=== PATIENT | female | born 1960 | race Caucasian/White ===

== ENCOUNTER 2017-06-01 17:11 | Inpatient (IN) | payer OTHER ==
[2017-06-01] MEDS ORDERED: morphine CARPU-JECT 2 MG/1 ML DISP.SYRIN IVPUSH ONE ×2 (17:47→20:00)
[2017-06-01] MEDS ORDERED: ONDANSETRON 4 MG/2 ML VIAL IVPUSH ONE (17:47)
[2017-06-01] MEDS ORDERED: ONDANSETRON 4 MG/2 ML VIAL ONE ×2 (17:50→19:46)
[2017-06-01] MEDS ORDERED: morphine CARPU-JECT 8 MG/1 ML DISP.SYRIN ONE (17:50)
--- NOTE | 2017-06-01 18:58 | PDOC ---
History of Present Illness - General History Source: Patient Exam Limitations: No Limitations - History of Present Illness Initial Comments: 06/01/17 18:58 The patient is a 57 year old female with a significant PMH of HTN and Charcot- Sapna-Tooth disorder who presents to the emergency department with right ankle pain s/p fall approximately 3 hours ago. The patient reports that she was watching dishes in the kitchen when she lost balance due to a Charcot-Sapna- Tooth disorder flare-up in her right leg and fell by putting all her weight on her left leg. She reports feeling like she twisted her right ankle when she fell. She describes the right ankle pain as a sharp sensation 10/10 in severity , which is localized from the right mid-stallworth down to the right ankle and is non- radiating. She reports her ankle pain is aggravated by movement. After falling the patient reports calling her who promptly called 911. She denies taking any medications for pain. The patient denies chest pain, shortness of breath, headache and dizziness. Denies fever, chills, nausea, vomit, diarrhea and constipation. Denies dysuria, frequency, urgency and hematuria. Allergies: NKA Past surgical history: None reported. Social history: No reported cigarette, alcohol, or drug use. PCP: None reported. <Herb Hart - Last Filed: 06/01/17 18:58> <Ronen Case - Last Filed: 06/02/17 16:54> - General Chief Complaint: Injury Stated Complaint: INJURY Time Seen by Provider: 06/01/17 17:47 Past History <Herb Hart - Last Filed: 06/01/17 18:58> - Past Medical History COPD: No HTN: Yes Kidney Stones: Yes Other medical history: Charcot sapna foot - Family Disease History Family Disease History: Heart Disease: Mother - Suicide/Smoking/Psychosocial Hx Smoking History: Never smoked Hx Alcohol Use: No Drug/Substance Use Hx: No Substance Use Type: None Hx Substance Use Treatment: No <Ronen Case - Last Filed: 06/02/17 16:54> - Past Medical History Allergies/Adverse Reactions: Allergies Allergy/AdvReac Type Severity Reaction Status Date / Time codeine Allergy Rash Verified 06/02/17 04:12 Home Medications: Ambulatory Orders Atenolol [Tenormin -] 100 mg PO DAILY 06/01/17 Review of Systems - Review of Systems Able to Perform ROS?: Yes Comments:: 06/01/17 18:58 GENERAL/CONSTITUTIONAL: No fever or chills. No weakness. HEAD, EYES, EARS, NOSE AND THROAT: No change in vision. No ear pain or discharge. No sore throat. CARDIOVASCULAR: No chest pain or shortness of breath. RESPIRATORY: No cough, wheezing, or hemoptysis. GASTROINTESTINAL: No nausea, vomiting, diarrhea or constipation. GENITOURINARY: No dysuria, frequency, or change in urination. MUSCULOSKELETAL: (+) Left ankle pain. (+) Left stallworth pain. No neck or back pain. SKIN: No rash NEUROLOGIC: No headache, vertigo, loss of consciousness, or change in strength/ sensation. ENDOCRINE: No increased thirst. No abnormal weight change. HEMATOLOGIC/LYMPHATIC: No anemia, easy bleeding, or history of blood clots. ALLERGIC/IMMUNOLOGIC: No hives or skin allergy. <Herb Hart - Last Filed: 06/01/17 18:58> *Physical Exam - Vital Signs Last Vital Signs Temp Pulse Resp BP Pulse Ox 99.1 F 79 17 134/83 97 06/01/17 17:28 06/01/17 17:28 06/01/17 17:28 06/01/17 17:28 06/01/17 17:28 - Physical Exam Comments: 06/01/17 18:58 GENERAL: Awake, alert, and fully oriented, in no acute distress HEAD: No signs of trauma EYES: PERRLA, EOMI, sclera anicteric, conjunctiva clear ENT: Auricles normal inspection, hearing grossly normal, nares patent, oropharynx clear without exudates. Moist mucosa NECK: Normal ROM, supple, no lymphadenopathy, JVD, or masses LUNGS: Breath sounds equal, clear to auscultation bilaterally. No wheezes, and no crackles HEART: Regular rate and rhythm, normal S1 and S2, no murmurs, rubs or gallops ABDOMEN: Soft, nontender, normoactive bowel sounds. No guarding, no rebound. No masses EXTREMITIES: (+) Left ankle and left stallworth tenderness to palpation. Normal range of motion, no edema. No clubbing or cyanosis. No cords, erythema. NEUROLOGICAL: Cranial nerves II through XII grossly intact. Normal speech. SKIN: Warm, Dry, normal turgor, no rashes or lesions noted. <Herb Hart - Last Filed: 06/01/17 18:58> - Vital Signs Last Vital Signs Temp Pulse Resp BP Pulse Ox 99.1 F 79 17 134/83 97 06/01/17 17:28 06/01/17 17:28 06/01/17 17:28 06/01/17 17:28 06/01/17 17:28 <Ronen Case - Last Filed: 06/02/17 16:54> ED Treatment Course - Medications Given in the ED: ED Medications Discontinued Medications Generic Name Dose Route Start Last Admin Trade Name Freq PRN Reason Stop Dose Admin Morphine Sulfate 2 mg 06/01/17 17:47 06/01/17 17:58 Morphine Injection - IVPUSH 06/01/17 17:48 2 mg ONCE ONE Administration Ondansetron HCl 4 mg 06/01/17 17:47 06/01/17 17:58 Zofran Injection IVPUSH 06/01/17 17:48 4 mg ONCE ONE Administration <Herb Hart - Last Filed: 06/01/17 18:58> - LABORATORY CBC & Chemistry Diagram: 06/02/17 06:00 06/02/17 06:00 - RADIOLOGY Radiology Studies Ordered: Category Date Time Status ANKLE & FOOT-LEFT* [RAD] Stat Radiology 06/01/17 18:13 Ordered LEG TIB/FIB-LEFT [RAD] Stat Radiology 06/01/17 17:47 Ordered - Medications Given in the ED: ED Medications Discontinued Medications Generic Name Dose Route Start Last Admin Trade Name Freq PRN Reason Stop Dose Admin Morphine Sulfate 2 mg 06/01/17 17:47 06/01/17 17:58 Morphine Injection - IVPUSH 06/01/17 17:48 2 mg ONCE ONE Administration Ondansetron HCl 4 mg 06/01/17 17:47 06/01/17 17:58 Zofran Injection IVPUSH 06/01/17 17:48 4 mg ONCE ONE Administration <Ronen Case - Last Filed: 06/02/17 16:54> *DC/Admit/Observation/Transfer - Attestations Scribe Attestion: 06/01/17 18:58 Documentation prepared by Herb Hart, acting as medical health researcher for Ronen Case DO. <Herb Hart - Last Filed: 06/01/17 18:58> - Attestations Physician Attestion: 06/01/17 18:58 I, Dr. Ronen Case, attest that this document has been prepared under my direction and personally reviewed by me in its entirety. I further attest, that it accurately reflects all work, treatment, procedures and medical decision -making performed by me. <Ronen Case - Last Filed: 06/02/17 16:54> Diagnosis at time of Disposition: Spiral fracture of shaft of tibia Qualifiers: Encounter type: initial encounter Fracture type: closed Fracture alignment: displaced Laterality: left Qualified Code(s): S82.242A - Displaced spiral fracture of shaft of left tibia, initial encounter for closed fracture - Discharge Dispostion Condition at time of disposition: Stable
[2017-06-01] MEDS ORDERED: ONDANSETRON 4 MG/2 ML VIAL IVPUSH STA (20:02)
--- NOTE | 2017-06-01 20:02 | PDOC ---
*Physical Exam - Vital Signs Last Vital Signs Temp Pulse Resp BP Pulse Ox 99.1 F 79 17 134/83 97 06/01/17 17:28 06/01/17 17:28 06/01/17 17:28 06/01/17 17:28 06/01/17 17:28 <Marta Evans - Last Filed: 06/01/17 20:44> - Vital Signs Last Vital Signs Temp Pulse Resp BP Pulse Ox 99.1 F 79 17 134/83 97 06/01/17 17:28 06/01/17 17:28 06/01/17 17:28 06/01/17 17:28 06/01/17 17:28 <Lorenzo Higginbotham - Last Filed: 06/01/17 20:50> Heart Score/ECG Review - ECG Intrepretation Comment:: 06/01/17 20:44 EKG was read by Dr. Higginbotham at 20:13 Impression: NOrmal sinus rhythm Vent Rate: 91 bpm MA INterval: 138 ms QTc: 489 ms <Marta Evans - Last Filed: 06/01/17 20:44> ED Treatment Course - LABORATORY CBC & Chemistry Diagram: 06/01/17 20:05 06/01/17 20:05 - ADDITIONAL ORDERS Additional order review: Laboratory Results 06/01/17 20:05 PT with INR 12.50 H INR 1.11 06/01/17 20:05 RBC 3.84 MCV 85.8 MCHC 32.6 RDW 14.5 MPV 8.3 D Neutrophils % 81.9 Lymphocytes % 13.0 D Monocytes % 4.6 Eosinophils % 0.1 D Basophils % 0.4 - Medications Given in the ED: ED Medications Discontinued Medications Generic Name Dose Route Start Last Admin Trade Name Freq PRN Reason Stop Dose Admin Morphine Sulfate 2 mg 06/01/17 17:47 06/01/17 17:58 Morphine Injection - IVPUSH 06/01/17 17:48 2 mg ONCE ONE Administration Morphine Sulfate 4 mg 06/01/17 20:00 06/01/17 20:06 Morphine Injection - IVPUSH 06/01/17 20:01 4 mg ONCE ONE Administration Ondansetron HCl 4 mg 06/01/17 17:47 06/01/17 17:58 Zofran Injection IVPUSH 06/01/17 17:48 4 mg ONCE ONE Administration Ondansetron HCl 4 mg 06/01/17 20:02 06/01/17 20:06 Zofran Injection IVPUSH 06/01/17 20:03 4 mg ONCE STA Administration <Marta Evans - Last Filed: 06/01/17 20:44> - LABORATORY CBC & Chemistry Diagram: 06/01/17 20:05 06/01/17 20:05 - Medications Given in the ED: ED Medications Discontinued Medications Generic Name Dose Route Start Last Admin Trade Name Maxwell PRN Reason Stop Dose Admin Morphine Sulfate 2 mg 06/01/17 17:47 06/01/17 17:58 Morphine Injection - IVPUSH 06/01/17 17:48 2 mg ONCE ONE Administration Ondansetron HCl 4 mg 06/01/17 17:47 06/01/17 17:58 Zofran Injection IVPUSH 06/01/17 17:48 4 mg ONCE ONE Administration <Lorenzo Higginbotham - Last Filed: 06/01/17 20:50> Medical Decision Making - Medical Decision Making 06/01/17 20:47 Pt was placed in a knee immoblizer as it is very difficult to flex patients foot to place her in a proper splint. Pt is unable to ambulate. Will admit. <Lorenzo Higginbotham - Last Filed: 06/01/17 20:50> *DC/Admit/Observation/Transfer <Marta Evans - Last Filed: 06/01/17 20:44> - Discharge Dispostion Admit: Yes <Lorenzo Higginbotham - Last Filed: 06/01/17 20:50> Diagnosis at time of Disposition: Spiral fracture of shaft of tibia Qualifiers: Encounter type: initial encounter Fracture type: closed Fracture alignment: displaced Laterality: left Qualified Code(s): S82.242A - Displaced spiral fracture of shaft of left tibia, initial encounter for closed fracture - Discharge Dispostion Condition at time of disposition: Stable
[2017-06-01 20:12] LABS: BASO % 0.4 % (0-2.0); EOS % 0.1 % (0-4.5); HEMOGLOBIN 10.7 GM/dL (10.7-15.3); MCH 27.9 pg (25.7-33.7); MCHC 32.6 g/dl (32.0-36.0); MEAN CELL VOLUME 85.8 fl (80-96); MEAN PLT VOLUME 8.3 fl (7.5-11.1); MONO % 4.6 % (3.8-10.2); NEUT % 81.9 % (42.8-82.8); PLATELET COUNT 308 K/MM3 (134-434); RBC 3.84 M/mm3 (3.60-5.2); RDW 14.5 % (11.6-15.6); WHITE BLOOD COUNT 13.1 K/mm3 (4.0-10.0)
[2017-06-01 20:24] LABS: INR 1.11 (0.82-1.09); PROTHROMBIN TIME (PATIENT) 12.5 SEC (9.98-11.88)
--- NOTE | 2017-06-01 20:42 | PN ---
Teaching Attending Note Name of Resident: Sadi Demarco ATTENDING PHYSICIAN STATEMENT I saw and evaluated the patient. I reviewed the resident's note and discussed the case with the resident. I agree with the resident's findings and plan as documented. SUBJECTIVE: 57 F with Pmhx of HTN and Charcot - Sapna- Tooth disorder who presents with ankle pain. Pt. felll 3 hours prior to presentation and she was in her kitchen when she lost balance and fell. She notes that she has been having a flare up of her Charcot Sapna Tooth abd she fell by placing her wieght on the left side. She states she has severe right ankle pain and thinks she twisted it. OBJECTIVE: Physical: VS: Vital Signs Period Temp Pulse Resp BP Sys/Mendieta Pulse Ox Last 24 Hr 99.1 F 79 17 134/83 97 GEN:NAD, resting in bed, AA0X3 HEENT: NCAT, PERRL, Throat without erythema or exudates CARD: RRR S1, S2 RESP: CTAB ABD: BSx4, NTD to palpation EXT: LLE in cast, no edema, pulses +2/4 DP-bilateral and equal CBCD WBC 13.1 K/mm3 (4.0-10.0) H 06/01/17 20:05 RBC 3.84 M/mm3 (3.60-5.2) 06/01/17 20:05 Hgb 10.7 GM/dL (10.7-15.3) 06/01/17 20:05 Hct 33.0 % (32.4-45.2) 06/01/17 20:05 MCV 85.8 fl (80-96) 06/01/17 20:05 MCHC 32.6 g/dl (32.0-36.0) 06/01/17 20:05 RDW 14.5 % (11.6-15.6) 06/01/17 20:05 Plt Count 308 K/MM3 (134-434) 06/01/17 20:05 MPV 8.3 fl (7.5-11.1) D 06/01/17 20:05 EKG: Impression: NOrmal sinus rhythm Vent Rate: 91 bpm HI INterval: 138 ms QTc: 489 ms Left Ankle and Foot: Acute Oblique Fx involving the distal tibial diametaphysis with mid fracture overriding, acute Fx involving proximal fibular dimetaphyses with mild fractures overriding ASSESSMENT AND PLAN: 57 F with Pmhx of HTN and Charcot - Sapna- Tooth disorder who presents with ankle pain S/p Mechanical Fall 1.) Left Tibia/Fibular fracture- S/P Mechanical Fall - Ortho consult - NPO - Coags, Type & Screen - Pain control 2.) HTN - C.W Home meds 3.) Dvt Ppx - Scds
--- NOTE | 2017-06-01 21:26 | HP ---
CHIEF COMPLAINT: left leg sever pain S/P fall PCP: HISTORY OF PRESENT ILLNESS: Patient is 57 year old female with Hx of Charcot Sapna tooth and HTN who presented to the ED due to sever left leg pain S/P fall. The patient was working in the kitchen when she lost her balance roated her left leg and fell down. She denies any head trauma , light headedness or dizziness prior to fall. She is disabled live by her self. Used walker to mobile due to CMT. She denies any headache , fever, chills, chest pain , palpitation, SOB. Denies any abdominal pain, N/V/D/C. Denies any urinary symptoms. ER course was notable for: (1) CBC, BMP (2)XRAY (3)Morphine 2gm IVBP for pain Recent Travel:denies PAST MEDICAL HISTORY: CMT, HTN, Kidney stone. PAST SURGICAL HISTORY: none Social History: Smoking:Denies Alcohol:Denies Drugs: Denies Family History:Mother : cholesterol and HTN, Father CAD, HTN, DM , 3 years ago at age of 78 from CAD . Allergies codeine Allergy (Verified 06/01/17 17:31) HOME MEDICATIONS: Home Medications Medication Instructions Recorded Atenolol [Tenormin -] 100 mg PO DAILY 06/01/17 REVIEW OF SYSTEMS CONSTITUTIONAL: Absent: fever, chills, diaphoresis, generalized weakness, malaise, loss of appetite, weight change HEENT: Absent: rhinorrhea, nasal congestion, throat pain, throat swelling, difficulty swallowing, mouth swelling, ear pain, eye pain, visual changes CARDIOVASCULAR: Absent: chest pain, syncope, palpitations, irregular heart rate, lightheadedness , peripheral edema RESPIRATORY: Absent: cough, shortness of breath, dyspnea with exertion, orthopnea, wheezing, stridor, hemoptysis GASTROINTESTINAL: Absent: abdominal pain, abdominal distension, nausea, vomiting, diarrhea, constipation, melena, hematochezia GENITOURINARY: Absent: dysuria, frequency, urgency, hesitancy, hematuria, flank pain, genital pain MUSCULOSKELETAL: Absent: myalgia, arthralgia, joint swelling, back pain, neck pain SKIN: Absent: rash, itching, pallor HEMATOLOGIC/IMMUNOLOGIC: Absent: easy bleeding, easy bruising, lymphadenopathy, frequent infections ENDOCRINE: Absent: unexplained weight gain, unexplained weight loss, heat intolerance, cold intolerance NEUROLOGIC: Absent: headache, focal weakness or paresthesias, dizziness,+unsteady gait, seizure, mental status changes, bladder or bowel incontinence PSYCHIATRIC: Absent: anxiety, depression, suicidal or homicidal ideation, hallucinations. PHYSICAL EXAMINATION Vital Signs - 24 hr 06/01/17 06/01/17 17:28 21:05 Temperature 99.1 F Pulse Rate 79 Pulse Rate [ 90 Left Radial] Respiratory 17 18 Rate Blood Pressure 134/83 Blood Pressure 115/65 [Right Arm] O2 Sat by Pulse 97 96 Oximetry (%) GENERAL: Awake, alert, and fully oriented, in no acute distress. HEAD: Normal with no signs of trauma. EYES: Pupils equal, round and reactive to light, sclera anicteric, conjunctiva clear. EARS, NOSE, THROAT: Moist mucous membranes. NECK: Normal range of motion, supple without lymphadenopathy, JVD LUNGS: Breath sounds equal, clear to auscultation bilaterally. No wheezes, and no crackles. No accessory muscle use. HEART: Regular rate and rhythm, normal S1 and S2 without murmur, rub or gallop. ABDOMEN: Soft, nontender, not distended, normoactive bowel sounds, no guarding, no rebound. MUSCULOSKELETAL: Normal range of motion at all joints. No CVA tenderness. UPPER EXTREMITIES: 2+ pulses, warm, well-perfused. No cyanosis. No clubbing. No peripheral edema. LOWER EXTREMITIES: 2+ pulses, warm, well-perfused. No calf tenderness.swelling with echymosis on Left stallworth.pes cavus in b/L feet NEUROLOGICAL: Normal speech. gait not observed PSYCHIATRIC: Cooperative. Good eye contact. Appropriate mood and affect. SKIN: Warm, dry, normal turgor, no rashes or lesions noted, normal capillary refill. Laboratory Results - last 24 hr 06/01/17 06/01/17 06/01/17 20:05 20:05 20:05 WBC 13.1 H RBC 3.84 Hgb 10.7 Hct 33.0 MCV 85.8 MCH 27.9 MCHC 32.6 RDW 14.5 Plt Count 308 MPV 8.3 D Neutrophils % 81.9 Lymphocytes % 13.0 D Monocytes % 4.6 Eosinophils % 0.1 D Basophils % 0.4 PT with INR 12.50 H INR 1.11 Blood Type O POSITIVE Antibody Screen Negative CBC, BMP 06/01/17 20:05 06/01/17 20:05 CXR 06/01/2017 : NO acute pathology Left leg Xray 06/01/2017 : distal tibia with proximal fibula fracture , with no ankle fracture. ASSESSMENT/PLAN: Patient is 57 year old female with Hx of Charcot Sapna tooth and HTN who presented to the ED due to sever left leg pain S/P mechanical fall. was found to have distal tibia with proximal fibula fracture and was admitted for further evaluation and treatment. # Acute tibia/fibula Fx , S/p Mechanical fall * left leg Xray as mentioned above * Pain controlled morphine 2 gm IVBP Q4hr with IV Tylenol 1000 mg Q6 hr * Orthopedic consult * NPO after med night for possible surgery tomorrow * Type and screen * coagulation studies * NS @75 CC/Hr # HTN , controlled * continue home meds Atenolol 100 mg daily * # FEN * F: NS @ 75 CC * E: WNL * N: NPO after mid night * # Proph: * DVT: low risk , SCDs on right leg , no left due to Fx * GI: No need * # Dispo : * Admit to med surge * Patient is low risk to intermediate risk for surgery. Visit type - Emergency Visit Emergency Visit: Yes ED Registration Date: 06/01/17 Care time: The patient presented to the Emergency Department on the above date and was hospitalized for further evaluation of their emergent condition. - New Patient This patient is new to me today: No - Critical Care Critical Care patient: No
[2017-06-01 21:47] LABS: ALBUMIN 3.6 g/dl (3.4-5.0); ANION GAP 9 (8-16); BLOOD UREA NITROGEN 18 mg/dL (7-18); CHLORIDE 104 mmol/L (98-107); CO2 25 mmol/L (21-32); CREATININE 0.4 mg/dL (0.55-1.02); GLUCOSE,RANDOM 93 mg/dL (74-106); POTASSIUM 4.3 mmol/L (3.5-5.1); SGOT/AST 16 U/L (15-37); SGPT/ALT 20 U/L (12-78); SODIUM 138 mmol/L (136-145)
[2017-06-01 21:49] LABS: ALK PHOS 80 U/L (45-117); BILIRUBIN,TOTAL 0.3 mg/dL (0.2-1.0); TOT PROT 7.3 g/dl (6.4-8.2)
[2017-06-01] MEDS ORDERED: ACETAMINOPHEN 1000 MG/100 ML VIAL (NON FORMULARY) IVPB ONE (22:09)
[2017-06-01] MEDS ORDERED: ACETAMINOPHEN INJECTION 100 ML IVPB ONE (22:17)
--- NOTE | 2017-06-01 22:19 | MSN ---
Admitting History and Physical - Admission Chief Complaint: "left leg pain" History of Present Illness: Esperanza Bailey is a 57yo F with a hx of Charcot Sapna Tooth Dz and HTN who presented with left leg squeezing pain rated 10/10 and swelling status post mechanical fall. Patient was in the kitchen when she lost her balance and felt her leg and foot rotate under her. Patient at baseline has an unsteady gait and uses a walker due to CMT Dz. Patient denies trauma to the head, loss of consciousness, SOB, chest pains. 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) Cardiovascular: Yes: HTN - Past Surgical History Past Surgical History: Yes: None - Smoking History Smoking history: Never smoked Have you smoked in the past 12 months: No - Alcohol/Substance Use Hx Alcohol Use: No - Social History Occupation: on disability due to CMT Home Medications - Allergies Allergies/Adverse Reactions: Allergies Allergy/AdvReac Type Severity Reaction Status Date / Time codeine Allergy Rash Verified 06/02/17 04:12 - Home Medications Home Medications: Ambulatory Orders Atenolol [Tenormin -] 100 mg PO DAILY 06/01/17 Family Disease History - Family Disease History Family Disease History: Diabetes: Father (father [place] at age 78), Mother ( hyperlipidemia), Heart Disease: Father, Other: Mother Review of Systems - Review of Systems Constitutional: reports: No Symptoms Eyes: reports: No Symptoms HENT: reports: No Symptoms Neck: reports: No Symptoms Cardiovascular: reports: No Symptoms Respiratory: reports: No Symptoms Gastrointestinal: reports: No Symptoms Genitourinary: reports: No Symptoms Musculoskeletal: reports: Extremity Pain (left lower extremity status post fall) Neurological: reports: No Symptoms Endocrine: reports: No Symptoms Hematology/Lymphatic: reports: No Symptoms Psychiatric: reports: No Symptoms Physical Examination Vital Signs: Vital Signs Temperature 99.1 F 06/01/17 17:28 Pulse Rate 90 06/01/17 21:05 Respiratory Rate 18 06/01/17 21:05 Blood Pressure 115/65 06/01/17 21:05 O2 Sat by Pulse Oximetry (%) 96 06/01/17 21:05 Constitutional: Yes: Well Nourished, Calm Eyes: Yes: WNL, Conjunctiva Clear, EOM Intact, PERRL HENT: Yes: WNL, Atraumatic, Normocephalic Neck: Yes: WNL, Supple, Trachea Midline Cardiovascular: Yes: WNL, Regular Rate and Rhythm, S1, S2 Respiratory: Yes: WNL, Regular, CTA Bilaterally Gastrointestinal: Yes: WNL, Normal Bowel Sounds, Soft Extremities: Yes: Other (high arches foot B/L due to CMT left lower extremity on cast. Echymosis of left medial ankle.) Edema: Yes (left extremities fracture) Peripheral Pulses WNL: Yes Peripheral Pulses: Left Radial: 2+, Right Radial: 2+, Left Doralis Pedis: 2+, Right Dorsalis Pedis: 2+ Neurological: Yes: WNL, Alert, Oriented, Cran Nerves II-XII Intact ...Motor Strength: LUE (5/5 throughout), LLE (5/5 on plantar and dorsiflexion. other motor strength not tested due to cast), RUE (5/5 throughout), RLE (5/5 throughout) Labs: CBC, BMP 06/01/17 20:05 06/01/17 20:05 CBC WBC 13.1 K/mm3 (4.0-10.0) H 06/01/17 20:05 RBC 3.84 M/mm3 (3.60-5.2) 06/01/17 20:05 Hgb 10.7 GM/dL (10.7-15.3) 06/01/17 20:05 Hct 33.0 % (32.4-45.2) 06/01/17 20:05 MCV 85.8 fl (80-96) 06/01/17 20:05 MCH 27.9 pg (25.7-33.7) 06/01/17 20:05 MCHC 32.6 g/dl (32.0-36.0) 06/01/17 20:05 RDW 14.5 % (11.6-15.6) 06/01/17 20:05 Plt Count 308 K/MM3 (134-434) 06/01/17 20:05 MPV 8.3 fl (7.5-11.1) D 06/01/17 20:05 Neutrophils % 81.9 % (42.8-82.8) 06/01/17 20:05 Lymphocytes % 13.0 % (8-40) D 06/01/17 20:05 Monocytes % 4.6 % (3.8-10.2) 06/01/17 20:05 Eosinophils % 0.1 % (0-4.5) D 06/01/17 20:05 Basophils % 0.4 % (0-2.0) 06/01/17 20:05 Imaging - Results Chest X-ray: Image Reviewed (no abnormalities noted) X-ray: Report Reviewed (acute oblique fracture involving distal tibial diamethaphysis with mild fracture overriding acute fracture of proximal fibular diametaphysis with mild fracture overriding), Image Reviewed EKG: Image Reviewed (sinus rhythm rate: 91 bpm GA Interval: 138 ms QTc: 489 ms ) Assessment/Plan 47yo F with a PMHx of CMT and HTN who presents with distal tibial and proximal fibular fracture due to mechanical fall. #distal tibial and proximal fibular fracture - ortho consult - NPO after midnight for possible orthopedic surgery - pain management with: acetaminophen 1000mg IVPB q6h prn pain morphine sulfate 2mg IVPUSH q4h prn pain - Coag, type/ screen #HTN - controlled with home medication - atenolol 100mg once daily #FEN - fluid- NS@75mls/hr - electrolytes - no abnormalities - nutrition- NPO after midnight #DVT prophylaxis - SCD on right LE
[2017-06-01] MEDS ORDERED: ACETAMINOPHEN 1000 MG/100 ML VIAL (NON FORMULARY) IVPB PRN ×2 (22:27→22:30)
[2017-06-02] MEDS: morphine SULFATE 4 MG/ML VIAL IVPUSH PRN ×2 (01:15→06:22)
[2017-06-02] MEDS: SODIUM CHLORIDE 1,000 ML IV SCH ×3 (01:17→21:30)
[2017-06-02 02:49] VITALS: BMI 26.6
[2017-06-02 08:06] LABS: BASO % 0.4 % (0-2.0); EOS % 0.2 % (0-4.5); HEMATOCRIT 27.7 % (32.4-45.2); HEMOGLOBIN 9.1 GM/dL (10.7-15.3); LYMPH % 24.7 % (8-40); MCH 28.1 pg (25.7-33.7); MCHC 32.8 g/dl (32.0-36.0); MEAN CELL VOLUME 85.6 fl (80-96); MEAN PLT VOLUME 7.8 fl (7.5-11.1); MONO % 8.7 % (3.8-10.2); PLATELET COUNT 252 K/MM3 (134-434); RBC 3.24 M/mm3 (3.60-5.2); RDW 14.6 % (11.6-15.6); WHITE BLOOD COUNT 7.4 K/mm3 (4.0-10.0)
[2017-06-02 08:29] LABS: ANION GAP 8 (8-16); BLOOD UREA NITROGEN 19 mg/dL (7-18); CALCIUM 8.6 mg/dL (8.5-10.1); CHLORIDE 108 mmol/L (98-107); CO2 26 mmol/L (21-32); CREATININE 0.4 mg/dL (0.55-1.02); GLUCOSE,RANDOM 90 mg/dL (74-106); POTASSIUM 3.8 mmol/L (3.5-5.1); SODIUM 142 mmol/L (136-145)
--- NOTE | 2017-06-02 09:30 | CONSULT ---
Consult - History of Present Illness History of Present Illness: 57y/o female c/o left leg pain s/p fall last night. She was transported to the ER and found to have a fracture of the right tibia and fibula. 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 She states she usually walks with a walker. The pain in her left leg is worse with use and better with rest. She denies any numbness or tingling. No other associated, aggravating or relieving factors. 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 Home Medications - Allergies Allergies/Adverse Reactions: Allergies Allergy/AdvReac Type Severity Reaction Status Date / Time codeine Allergy Rash Verified 06/02/17 04:12 - Home Medications Home Medications: Ambulatory Orders Atenolol [Tenormin -] 100 mg PO DAILY 06/01/17 Docusate Sodium [Colace -] 100 mg PO BID #100 capsule 06/04/17 Enoxaparin [Lovenox -] 40 mg SQ DAILY disp.syrin 06/04/17 Ferrous Sulfate [Feosol] 325 mg PO DAILY ud 06/04/17 Oxycodone HCl [Roxicodone -] 5 mg PO Q4H PRN #20 tablet MDD 6 06/04/17 Family Disease History - Family Disease History Family Disease History: Diabetes: Father (father [place] at age 78), Mother ( hyperlipidemia), Heart Disease: Father, Other: Mother Review of Systems - Review of Systems Constitutional: reports: No Symptoms Eyes: reports: No Symptoms HENT: reports: No Symptoms Neck: reports: No Symptoms Cardiovascular: reports: No Symptoms Respiratory: reports: No Symptoms Gastrointestinal: reports: No Symptoms Genitourinary: reports: No Symptoms Breasts: reports: No Symptoms Reported Musculoskeletal: reports: Extremity Pain Integumentary: reports: No Symptoms Neurological: reports: No Symptoms Endocrine: reports: No Symptoms Hematology/Lymphatic: reports: No Symptoms Psychiatric: reports: No Symptoms Physical Exam Vital Signs: Vital Signs Temperature 99.4 F 06/02/17 06:26 Pulse Rate 78 06/02/17 06:26 Respiratory Rate 20 06/02/17 06:26 Blood Pressure 109/62 06/02/17 06:26 O2 Sat by Pulse Oximetry (%) 98 06/02/17 01:00 Constitutional: Yes: Well Nourished, No Distress, Calm HENT: Yes: Atraumatic, Normocephalic Musculoskeletal: Yes: Other (Left lower extremity: No open wounds. Moderate edema of the LLE. No erythema or ecchymosis. Tenderness over the proximal fibula and distal tibia. Comparments are soft. Calf non-tender. The foot has a high arch and there some CMT deformity but she has good strenth of EHL, FHL and intact sensation. Well perfused. +2 distal pulses.) Labs: CBC, BMP 06/02/17 06:00 06/02/17 06:00 Imaging - Results X-ray: Report Reviewed, Image Reviewed (Spiral fx of dital tibia and proximal fibula fracture) Assessment/Plan #1 Left tibia and fibula fractures -Discussed today's findings and treatment options. Together decided to proceed surgically. Case discussed with Dr. Chavez. -NPO -pain control -Plan for OR later today
--- NOTE | 2017-06-02 12:43 | EKG ---
Test Reason : Blood Pressure : / mmHG Vent. Rate : 091 BPM Atrial Rate : 091 BPM P-R Int : 138 ms QRS Dur : 084 ms QT Int : 398 ms P-R-T Axes : 059 037 050 degrees QTc Int : 489 ms POOR DATA QUALITY, INTERPRETATION MAY BE ADVERSELY AFFECTED NORMAL SINUS RHYTHM NORMAL ECG NO PREVIOUS ECGS AVAILABLE Confirmed by GABRIELLA ROSENBERG MD ([id number]) on 06/02/2017 12:43:31 PM Referred By: Confirmed By:GABRIELLA ROSENBERG MD
--- NOTE | 2017-06-02 15:46 | PN ---
Physical Exam: SUBJECTIVE: Patient seen and examined. No acute events overnight. Pt states that her LLE is causing her pain, but it is less than before. She denies headache, chest pain, SOB, abdominal pain, n/v/d /c, and dysuria. OBJECTIVE: Vital Signs Period Temp Pulse Resp BP Sys/Mendieta Pulse Ox Last 24 Hr 97.9 F-99.4 F 70-99 16-20 109-135/62-83 96-98 GENERAL: The patient is awake, alert, and fully oriented, in mild distress. HEENT: NC, AT, EOMI LUNGS: Breath sounds equal, clear to auscultation bilaterally, no wheezes, no crackles, no accessory muscle use. HEART: Regular rate and rhythm, S1, S2 without murmur, rub or gallop. ABDOMEN: Soft, nontender, nondistended, normoactive bowel sounds, no guarding, no rebound, no hepatosplenomegaly, no masses. EXTREMITIES: LLE is in brace, extremely tender to palpation. left foot is swollen, pulses intact, sensation intact. NEUROLOGICAL: Cranial nerves II through XII grossly intact. Normal speech, gait not observed. Laboratory Results - last 24 hr 06/01/17 06/01/17 06/01/17 20:05 20:05 20:05 WBC 13.1 H RBC 3.84 Hgb 10.7 Hct 33.0 MCV 85.8 MCH 27.9 MCHC 32.6 RDW 14.5 Plt Count 308 MPV 8.3 D Neutrophils % 81.9 Lymphocytes % 13.0 D Monocytes % 4.6 Eosinophils % 0.1 D Basophils % 0.4 PT with INR 12.50 H INR 1.11 Sodium 138 Potassium 4.3 Chloride 104 Carbon Dioxide 25 Anion Gap 9 BUN 18 D Creatinine 0.4 L Creat Clearance w eGFR > 60 Random Glucose 93 D Calcium 9.0 Total Bilirubin 0.3 AST 16 ALT 20 Alkaline Phosphatase 80 Total Protein 7.3 Albumin 3.6 Blood Type Antibody Screen 06/01/17 06/02/17 06/02/17 20:05 06:00 06:00 WBC 7.4 D RBC 3.24 L Hgb 9.1 L D Hct 27.7 L D MCV 85.6 MCH 28.1 MCHC 32.8 RDW 14.6 Plt Count 252 MPV 7.8 Neutrophils % 66.0 Lymphocytes % 24.7 D Monocytes % 8.7 D Eosinophils % 0.2 D Basophils % 0.4 PT with INR INR Sodium 142 Potassium 3.8 Chloride 108 H Carbon Dioxide 26 Anion Gap 8 BUN 19 H Creatinine 0.4 L Creat Clearance w eGFR Random Glucose 90 Calcium 8.6 Total Bilirubin AST ALT Alkaline Phosphatase Total Protein Albumin Blood Type O POSITIVE Antibody Screen Negative Active Medications Generic Name Dose Route Start Last Admin Trade Name Freq PRN Reason Stop Dose Admin Acetaminophen 1,000 mg 06/01/17 22:30 06/02/17 13:33 Ofirmev Injection - IVPB 1,000 mg Q6H PRN Administration FEVER OR PAIN Sodium Chloride 1,000 mls @ 75 mls/hr 06/01/17 22:30 06/02/17 13:33 Normal Saline - IV 75 mls/hr ASDIR ALESSIO Administration Morphine Sulfate 2 mg 06/01/17 22:18 06/02/17 06:22 Morphine Sulfate IVPUSH 2 mg Q4H PRN Administration FEVER OR PAIN ASSESSMENT/PLAN: 57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 #distal tibia and proximal fibula fracture -ortho on board, recs appreciated. Pt to receive surgery to correct fracture , pt consented. -pain control with morphine -NPO for surgery -NS @75cc/hr #HTN -continue home atenolol 100mg po qd after surgery -monitor BP #Normocytic Anemia -Hgb of 10.7 on admission, downtrended to 9.1. MCV of 85 -f/u iron studies, B12, folate -trend Hgb #FEN/ppx -NS @75cc/hr -electrolytes wnl -NPO for surgery -no GI ppx -SCD on R leg, no DVT ppx as pt to go for surgery -Sree Colin MD PGY1 Visit type - Emergency Visit Emergency Visit: Yes ED Registration Date: 06/01/17 Care time: The patient presented to the Emergency Department on the above date and was hospitalized for further evaluation of their emergent condition. - New Patient This patient is new to me today: Yes Date on this admission: 06/02/17 - Critical Care Critical Care patient: No
--- NOTE | 2017-06-02 16:10 | PN ---
Teaching Attending Note Name of Resident: Verna Onofre ATTENDING PHYSICIAN STATEMENT I saw and evaluated the patient. I reviewed the resident's note and discussed the case with the resident. I agree with the resident's findings and plan as documented. SUBJECTIVE: Patient is going for Sx today , no fever or chills, no shortness of breath, no nausea or vomiting, patient is NPO. OBJECTIVE: Vital Signs Temperature 97.9 F 06/02/17 15:05 Pulse Rate 99 H 06/02/17 15:05 Respiratory Rate 16 06/02/17 15:05 Blood Pressure 127/66 06/02/17 15:05 O2 Sat by Pulse Oximetry (%) 98 06/02/17 09:00 CBCD WBC 7.4 K/mm3 (4.0-10.0) D 06/02/17 06:00 RBC 3.24 M/mm3 (3.60-5.2) L 06/02/17 06:00 Hgb 9.1 GM/dL (10.7-15.3) L D 06/02/17 06:00 Hct 27.7 % (32.4-45.2) L D 06/02/17 06:00 MCV 85.6 fl (80-96) 06/02/17 06:00 MCHC 32.8 g/dl (32.0-36.0) 06/02/17 06:00 RDW 14.6 % (11.6-15.6) 06/02/17 06:00 Plt Count 252 K/MM3 (134-434) 06/02/17 06:00 MPV 7.8 fl (7.5-11.1) 06/02/17 06:00 CMP Sodium 142 mmol/L (136-145) 06/02/17 06:00 Potassium 3.8 mmol/L (3.5-5.1) 06/02/17 06:00 Chloride 108 mmol/L (98-107) H 06/02/17 06:00 Carbon Dioxide 26 mmol/L (21-32) 06/02/17 06:00 Anion Gap 8 (8-16) 06/02/17 06:00 BUN 19 mg/dL (7-18) H 06/02/17 06:00 Creatinine 0.4 mg/dL (0.55-1.02) L 06/02/17 06:00 Creat Clearance w eGFR > 60 (>60) 06/01/17 20:05 Random Glucose 90 mg/dL (74-106) 06/02/17 06:00 Calcium 8.6 mg/dL (8.5-10.1) 06/02/17 06:00 Total Bilirubin 0.3 mg/dL (0.2-1.0) 06/01/17 20:05 AST 16 U/L (15-37) 06/01/17 20:05 ALT 20 U/L (12-78) 06/01/17 20:05 Alkaline Phosphatase 80 U/L (45-117) 06/01/17 20:05 Total Protein 7.3 g/dl (6.4-8.2) 06/01/17 20:05 Albumin 3.6 g/dl (3.4-5.0) 06/01/17 20:05 Current Medications Generic Name Dose Route Start Last Admin Trade Name Freq PRN Reason Stop Dose Admin Acetaminophen 1,000 mg 06/01/17 22:30 06/02/17 13:33 Ofirmev Injection - IVPB 1,000 mg Q6H PRN Administration FEVER OR PAIN Sodium Chloride 1,000 mls @ 75 mls/hr 06/01/17 22:30 06/02/17 13:33 Normal Saline - IV 75 mls/hr ASDIR ALESSIO Administration Morphine Sulfate 2 mg 06/01/17 22:18 06/02/17 06:22 Morphine Sulfate IVPUSH 2 mg Q4H PRN Administration FEVER OR PAIN Home Medications Medication Instructions Recorded Atenolol [Tenormin -] 100 mg PO DAILY 06/01/17 PE: per resident's note ASSESSMENT AND PLAN: Patient is a 57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 # Acute distal tibia and proximal fibula fracture patient is going for ORIF with intramedullary nail by #HTN continue home atenolol 100mg po qd post surgery continue #Normocytic Anemia, Fe studies DVT Px: Lovenox post sx
[2017-06-02 17:10] LABS: BASO % 0.5 % (0-2.0); EOS % 0.1 % (0-4.5); HEMATOCRIT 26.8 % (32.4-45.2); LYMPH % 23.2 % (8-40); MCH 28.8 pg (25.7-33.7); MCHC 33.5 g/dl (32.0-36.0); MEAN CELL VOLUME 85.9 fl (80-96); MONO % 7.4 % (3.8-10.2); NEUT % 68.8 % (42.8-82.8); PLATELET COUNT 237 K/MM3 (134-434); RBC 3.11 M/mm3 (3.60-5.2); RDW 14.7 % (11.6-15.6); WHITE BLOOD COUNT 6.8 K/mm3 (4.0-10.0)
[2017-06-02] MEDS ORDERED: fentaNYL CITRATE 250 MCG/5 ML VIAL ONE (17:20)
[2017-06-02] MEDS ORDERED: DEXAMETHASONE SOD PHOSPHATE 4 MG/1 ML VIAL ONE ×2 (17:27→19:34)
[2017-06-02] MEDS ORDERED: ONDANSETRON 4 MG/2 ML VIAL ONE ×2 (17:27→19:34)
[2017-06-02] MEDS ORDERED: PROPOFOL 20 ML ONE (17:27)
[2017-06-02] MEDS ORDERED: LIDOCAINE HCL/PF 2% SDV 5ML VIAL ONE (17:27)
[2017-06-02] MEDS ORDERED: ceFAZolin SODIUM 1 GM VIAL ONE (17:30)
[2017-06-02] MEDS: ceFAZolin SODIUM 1 GM VIAL IVPB ONE (17:31)
[2017-06-02] MEDS ORDERED: PROMETHAZINE HCL 25 MG/1 ML VIAL IVPUSH PRN (20:05)
[2017-06-02] MEDS ORDERED: LORazepam 2 MG/ML SDV VIAL IVPUSH ONE (20:08)
[2017-06-02] MEDS ORDERED: HYDROmorphone HCL CARPU-JECT 2 MG/1 ML DISP.SYRIN ONE (20:09)
[2017-06-02] MEDS: HYDROmorphone HCL CARPU-JECT 2 MG/1 ML DISP.SYRIN IVPUSH PRN ×2 (20:10→20:45)
[2017-06-02] MEDS ORDERED: DOCUSATE SODIUM 100 MG CAPSULE (FP) PO PRN (20:14)
[2017-06-02] MEDS ORDERED: oxyCODONE HCL 5 MG TABLET PO PRN ×2 (20:14→20:16)
--- NOTE | 2017-06-02 20:20 | OP ---
Operative Note - Note: Operative Date: 06/02/17 Pre-Operative Diagnosis: Tibial shaft fracture Operation: Open reduction internal fixation of tibia fracture with intramedullary nail Implants: keven IM tibial nail, screw x 5 Post-Operative Diagnosis: Same as Pre-op Surgeon: Butch Chavez Harness Builder: Tanvi Rea Anesthesiologist/MACHINE FEEDER RAW STOCK: Oliver Mckeon Anesthesia: General Estimated Blood Loss (mls): 200 Fluid Volume Replaced (mls): 1,700 Operative Report Dictated: Yes
--- NOTE | 2017-06-02 20:22 | SURG ---
Surgery Engagement Manager Note Engagement Manager: Tanvi Rea PA-C Date of Service: 06/02/17 Diagnosis: Left Tibial shaft fracture Procedure: Open reduction internal fixation of left tibia fracture with intramedullary nail I was present for the entirety of the operative procedure. For further detail, please refer to operative report. Visit type - Case Type Case Type: ED Admission - Emergency Emergency Visit: Yes ED Registration Date: 06/01/17 Care time: The patient presented to the Emergency Department on the above date and was hospitalized for further evaluation of their emergent condition. - New patient This patient is new to me today: Yes Date on this admission: 06/02/17
[2017-06-02] MEDS ORDERED: morphine SULFATE 4 MG/ML VIAL IVPUSH PRN (20:54)
[2017-06-02] MEDS ORDERED: ACETAMINOPHEN 1000 MG/100 ML VIAL (NON FORMULARY) IVPB PRN (20:54)
[2017-06-03] MEDS: CEFAZOLIN 1 GM PUSH 1 GM/10 ML DISP.SYRIN IVPUSH SCH ×3 (01:18→17:04)
[2017-06-03] MEDS: HYDROmorphone HCL CARPU-JECT 2 MG/1 ML DISP.SYRIN IVPUSH PRN ×4 (04:19→21:12)
[2017-06-03 08:57] LABS: BASO % 0.1 % (0-2.0); HEMATOCRIT 26.2 % (32.4-45.2); HEMOGLOBIN 8.7 GM/dL (10.7-15.3); LYMPH % 11.5 % (8-40); MCH 28.8 pg (25.7-33.7); MCHC 33.3 g/dl (32.0-36.0); MEAN CELL VOLUME 86.6 fl (80-96); MEAN PLT VOLUME 7.9 fl (7.5-11.1); MONO % 6.1 % (3.8-10.2); NEUT % 82.3 % (42.8-82.8); PLATELET COUNT 209 K/MM3 (134-434); RBC 3.02 M/mm3 (3.60-5.2); RDW 14.8 % (11.6-15.6); WHITE BLOOD COUNT 9.1 K/mm3 (4.0-10.0)
[2017-06-03 09:34] LABS: ALBUMIN 2.8 g/dl (3.4-5.0); ANION GAP 8 (8-16); BILIRUBIN,TOTAL 0.4 mg/dL (0.2-1.0); BLOOD UREA NITROGEN 11 mg/dL (7-18); CALCIUM 7.8 mg/dL (8.5-10.1); CHLORIDE 105 mmol/L (98-107); CO2 27 mmol/L (21-32); CREATININE 0.3 mg/dL (0.55-1.02); GLUCOSE,RANDOM 98 mg/dL (74-106); SGOT/AST 32 U/L (15-37); SGPT/ALT 21 U/L (12-78); SODIUM 140 mmol/L (136-145)
[2017-06-03 09:36] LABS: ALK PHOS 64 U/L (45-117)
[2017-06-03] MEDS ORDERED: PT OWN MED DRAWER 7, Y5N ONE ×2 (09:36→17:03)
[2017-06-03] MEDS: ENOXAPARIN NA (PORCINE) 40 MG/0.4 ML DISP.SYRIN SQ SCH (09:39)
[2017-06-03] MEDS: ceFAZolin SODIUM 1 GM VIAL IVPB ONE (11:19)
--- NOTE | 2017-06-03 14:30 | PN ---
Progress Note (short form) - Note Progress Note: Pt day #1 s/p left tibia nail under GA. Case went well, no anesthetic complications. Pt pain is tolerable- continue current mgmt
--- NOTE | 2017-06-03 18:18 | PN ---
Physical Exam: SUBJECTIVE: Patient seen and examined. No acute events overnight. POD #1. Pt has moderate pain in her leg, but denies SOB, chest pain, abdominal pain, n/v/d/c, and dysuria. OBJECTIVE: Vital Signs Period Temp Pulse Resp BP Sys/Mendieta Pulse Ox Last 24 Hr 97.9 F-99.4 F 12-111 10-20 118-155/65-100 98-100 GENERAL: The patient is awake, alert, and fully oriented, in mild distress. HEENT: NC, AT, EOMI LUNGS: Breath sounds equal, clear to auscultation bilaterally, no wheezes, no crackles, no accessory muscle use. HEART: Regular rate and rhythm, S1, S2 without murmur, rub or gallop. ABDOMEN: Soft, nontender, nondistended, normoactive bowel sounds, no guarding, no rebound, no hepatosplenomegaly, no masses. EXTREMITIES: LLE is bandaged and elevated on pillows, tender to palpation. left foot is swollen, pulses intact, sensation intact. NEUROLOGICAL: Cranial nerves II through XII grossly intact. Normal speech, gait not observed. Laboratory Results - last 24 hr 06/03/1706/03/06/03/17 08:00 08:00 08:00 WBC 9.1 D Cancelled Corrected WBC (auto) Cancelled RBC 3.02 L Cancelled Hgb 8.7 L Cancelled Hct 26.2 L Cancelled MCV 86.6 Cancelled MCH 28.8 Cancelled MCHC 33.3 Cancelled RDW 14.8 Cancelled Plt Count 209 Cancelled MPV 7.9 Cancelled Absolute Neuts (auto) 7.5 L D Absolute Lymphs (auto) 1.1 L D Absolute Monos (auto) 0.6 L Absolute Eos (auto) 0.0 Absolute Basos (auto) 0.0 L Neutrophils % 82.3 Lymphocytes % 11.5 D Monocytes % 6.1 Eosinophils % 0.0 D Basophils % 0.1 Manual Slide Review Cancelled Platelet Comment Cancelled Sodium 140 Potassium 4.0 Chloride 105 Carbon Dioxide 27 Anion Gap 8 BUN 11 D Creatinine 0.3 L D Creat Clearance w eGFR > 60 Random Glucose 98 Calcium 7.8 L Ferritin 45.717 Total Bilirubin 0.4 D AST 32 D ALT 21 Alkaline Phosphatase 64 Total Protein 6.0 L Albumin 2.8 L D Vitamin B12 794 Serum Folate 16 Active Medications Generic Name Dose Route Start Last Admin Trade Name Freq PRN Reason Stop Dose Admin Acetaminophen 1,000 mg 06/02/17 20:54 Ofirmev Injection - IVPB Q6H PRN FEVER OR PAIN Docusate Sodium 100 mg 06/02/17 20:14 Colace - PO BID PRN CONSTIPATION Enoxaparin Sodium 40 mg 06/03/17 10:00 06/03/17 09:39 Lovenox - SQ 40 mg DAILY ALESSIO Administration Hydromorphone HCl 1 mg 06/02/17 21:33 06/03/17 04:19 Dilaudid Injection - IVPUSH 1 mg Q4H PRN Administration PAIN Cefazolin Sodium 1 gm in 10 mls @ 120 mls/hr 06/03/17 01:30 06/03/17 17:04 Ancef - IVPUSH 06/04/17 01:29 120 mls/hr Q8H ALESSIO Administration Sodium Chloride 1,000 mls @ 75 mls/hr 06/02/17 20:54 06/02/17 21:30 Normal Saline - IV 0 mls ASDIR ALESSIO Administration Oxycodone HCl 5 mg 06/02/17 20:14 Roxicodone - PO Q4H PRN PAIN LEVEL 1-5 Oxycodone HCl 10 mg 06/02/17 20:16 Roxicodone - PO Q4H PRN PAIN LEVEL 6-10 Promethazine HCl 12.5 mg 06/02/17 20:05 Phenergan Injection - IVPUSH Q6H PRN NAUSEA-FOR RESCUE AFTER 15 MIN ASSESSMENT/PLAN: 57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 #distal tibia and proximal fibula fracture -POD#1 s/p ORIF of tibia/fibula fractures with IM nail -pain control with dilaudid and oxycodone -NS @75cc/hr -phenergan for nausea -colace -cefazolin #HTN -home atenolol 100mg po qd restarted -monitor BP #Normocytic Anemia -Hgb of 10.7 on admission, downtrending to 8.7 -iron studies: f;/u -B12 and folate wnl -trend Hgb #FEN/ppx -NS @75cc/hr -electrolytes wnl -regular diet -no GI ppx -lovenox 40 qd -check vitamin D as outpt -Sree Colin MD PGY1 Visit type - Emergency Visit Emergency Visit: Yes ED Registration Date: 06/01/17 Care time: The patient presented to the Emergency Department on the above date and was hospitalized for further evaluation of their emergent condition. - New Patient This patient is new to me today: No - Critical Care Critical Care patient: No
[2017-06-03] MEDS: ATENOLOL 50 MG TABLET (FP) PO SCH (21:13)
--- NOTE | 2017-06-03 21:19 | PN ---
Teaching Attending Note Name of Resident: Chad Saunders ATTENDING PHYSICIAN STATEMENT I saw and evaluated the patient. I reviewed the resident's note and discussed the case with the resident. I agree with the resident's findings and plan as documented. SUBJECTIVE: OBJECTIVE: Vital Signs Temperature 98.4 F 06/03/17 17:34 Pulse Rate 110 H 06/03/17 17:34 Respiratory Rate 18 06/03/17 17:34 Blood Pressure 134/71 06/03/17 17:34 O2 Sat by Pulse Oximetry (%) 99 06/03/17 09:00 CBCD WBC 9.1 K/mm3 (4.0-10.0) D 06/03/17 08:00 RBC 3.02 M/mm3 (3.60-5.2) L 06/03/17 08:00 Hgb 8.7 GM/dL (10.7-15.3) L 06/03/17 08:00 Hct 26.2 % (32.4-45.2) L 06/03/17 08:00 MCV 86.6 fl (80-96) 06/03/17 08:00 MCHC 33.3 g/dl (32.0-36.0) 06/03/17 08:00 RDW 14.8 % (11.6-15.6) 06/03/17 08:00 Plt Count 209 K/MM3 (134-434) 06/03/17 08:00 MPV 7.9 fl (7.5-11.1) 06/03/17 08:00 CMP Sodium 140 mmol/L (136-145) 06/03/17 08:00 Potassium 4.0 mmol/L (3.5-5.1) 06/03/17 08:00 Chloride 105 mmol/L (98-107) 06/03/17 08:00 Carbon Dioxide 27 mmol/L (21-32) 06/03/17 08:00 Anion Gap 8 (8-16) 06/03/17 08:00 BUN 11 mg/dL (7-18) D 06/03/17 08:00 Creatinine 0.3 mg/dL (0.55-1.02) L D 06/03/17 08:00 Creat Clearance w eGFR > 60 (>60) 06/03/17 08:00 Random Glucose 98 mg/dL (74-106) 06/03/17 08:00 Calcium 7.8 mg/dL (8.5-10.1) L 06/03/17 08:00 Total Bilirubin 0.4 mg/dL (0.2-1.0) D 06/03/17 08:00 AST 32 U/L (15-37) D 06/03/17 08:00 ALT 21 U/L (12-78) 06/03/17 08:00 Alkaline Phosphatase 64 U/L (45-117) 06/03/17 08:00 Total Protein 6.0 g/dl (6.4-8.2) L 06/03/17 08:00 Albumin 2.8 g/dl (3.4-5.0) L D 06/03/17 08:00 Current Medications Generic Name Dose Route Start Last Admin Trade Name Freq PRN Reason Stop Dose Admin Acetaminophen 1,000 mg 06/02/17 20:54 Ofirmev Injection - IVPB Q6H PRN FEVER OR PAIN Atenolol 100 mg 06/03/17 18:30 Tenormin - PO DAILY ALESSIO Docusate Sodium 100 mg 06/02/17 20:14 Colace - PO BID PRN CONSTIPATION Enoxaparin Sodium 40 mg 06/03/17 10:00 06/03/17 09:39 Lovenox - SQ 40 mg DAILY ALESSIO Administration Hydromorphone HCl 1 mg 06/02/17 21:33 06/03/17 04:19 Dilaudid Injection - IVPUSH 1 mg Q4H PRN Administration PAIN Cefazolin Sodium 1 gm in 10 mls @ 120 mls/hr 06/03/17 01:30 06/03/17 17:04 Ancef - IVPUSH 06/04/17 01:29 120 mls/hr Q8H ALESSIO Administration Sodium Chloride 1,000 mls @ 75 mls/hr 06/02/17 20:54 06/02/17 21:30 Normal Saline - IV 0 mls ASDIR ALESSIO Administration Oxycodone HCl 5 mg 06/02/17 20:14 Roxicodone - PO Q4H PRN PAIN LEVEL 1-5 Oxycodone HCl 10 mg 06/02/17 20:16 Roxicodone - PO Q4H PRN PAIN LEVEL 6-10 Promethazine HCl 12.5 mg 06/02/17 20:05 Phenergan Injection - IVPUSH Q6H PRN NAUSEA-FOR RESCUE AFTER 15 MIN Home Medications Medication Instructions Recorded Atenolol [Tenormin -] 100 mg PO DAILY 06/01/17 ASSESSMENT AND PLAN: 57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 # POD #1 s/p Acute distal tibia and proximal fibula fracture s/p ORIF with intramedullary nail by , continue pain meds. #HTN continue home atenolol 100mg po qd #Normocytic Anemia, Fe studies pending DVT Px: Lovenox post sx
[2017-06-04] MEDS: SODIUM CHLORIDE 1,000 ML IV SCH ×2 (00:08→11:12)
[2017-06-04] MEDS: HYDROmorphone HCL CARPU-JECT 2 MG/1 ML DISP.SYRIN IVPUSH PRN ×3 (01:22→12:11)
[2017-06-04 06:06] LABS: SERUM IRON SATURATION 10 % (15-55); TOTAL IRON BINDING CAPACITY 275 ug/dL (250-450); UIBC 248 ug/dL (131-425)
[2017-06-04] MEDS: ATENOLOL 50 MG TABLET (FP) PO SCH (10:00)
[2017-06-04] MEDS ORDERED: PT OWN MED DRAWER 7, Y5N ONE (10:00)
[2017-06-04] MEDS: ENOXAPARIN NA (PORCINE) 40 MG/0.4 ML DISP.SYRIN SQ SCH (10:03)
--- NOTE | 2017-06-04 16:28 | PN ---
Progress Note (short form) - Note Progress Note: Pt lying comf in bed. Pain improving. AF VSS LLE dressings cdi calves soft nt ehl fhl ta g s intact sensation intact to light 2+ dp pulse hct 26 a/p: POD 2 L tibial nail -pain control -dvt proph (will need for 1 mo post op, can be on LMWH in SNF and go to [facility] when home) -oob/rehab -strict NWB -to follow up in 7-10 days for wound check
[2017-06-04 17:15] VITALS: BP 132/69; PULSE 90; TEMP 99.4
--- NOTE | 2017-06-04 18:26 | DS ---
Physical Exam: SUBJECTIVE: Patient seen and examined Patient is feeling better, daughter at bed side. Pain is less. OBJECTIVE: Vital Signs Temperature 99.4 F 06/04/17 17:14 Pulse Rate 90 06/04/17 17:14 Respiratory Rate 20 06/04/17 17:14 Blood Pressure 132/69 06/04/17 17:14 O2 Sat by Pulse Oximetry (%) 94 L 06/03/17 21:00 PHYSICAL EXAM GENERAL: The patient is awake, alert, and fully oriented, in no acute distress. HEAD: Normal with no signs of trauma. EYES: PERRL, extraocular movements intact, sclera anicteric, conjunctiva clear. ENT: Ears normal, oropharynx clear without exudates, moist mucous membranes. NECK: Trachea midline, full range of motion, supple. LUNGS: Breath sounds equal, clear to auscultation bilaterally, no wheezes, no crackles, no accessory muscle use. HEART: Regular rate and rhythm, S1, S2 without murmur, rub or gallop. ABDOMEN: Soft, nontender, nondistended, normoactive bowel sounds, no guarding, no rebound, no hepatosplenomegaly, no masses. EXTREMITIES: 2+ pulses, warm, well-perfused, LLE sx ,calves soft NT, sensation intact to touch, NEUROLOGICAL: Cranial nerves II through XII grossly intact. Normal speech, gait not observed. PSYCH: Normal mood, normal affect. SKIN: Warm, dry, normal turgor, no rashes or lesions noted. LABS Laboratory Results - last 24 hr 06/03/17 08:00 Iron 27 TIBC 275 Iron Saturation 10 L CBCD WBC 9.1 K/mm3 (4.0-10.0) D 06/03/17 08:00 RBC 3.02 M/mm3 (3.60-5.2) L 06/03/17 08:00 Hgb 8.7 GM/dL (10.7-15.3) L 06/03/17 08:00 Hct 26.2 % (32.4-45.2) L 06/03/17 08:00 MCV 86.6 fl (80-96) 06/03/17 08:00 MCHC 33.3 g/dl (32.0-36.0) 06/03/17 08:00 RDW 14.8 % (11.6-15.6) 06/03/17 08:00 Plt Count 209 K/MM3 (134-434) 06/03/17 08:00 MPV 7.9 fl (7.5-11.1) 06/03/17 08:00 CMP Sodium 140 mmol/L (136-145) 06/03/17 08:00 Potassium 4.0 mmol/L (3.5-5.1) 06/03/17 08:00 Chloride 105 mmol/L (98-107) 06/03/17 08:00 Carbon Dioxide 27 mmol/L (21-32) 06/03/17 08:00 Anion Gap 8 (8-16) 06/03/17 08:00 BUN 11 mg/dL (7-18) D 06/03/17 08:00 Creatinine 0.3 mg/dL (0.55-1.02) L D 06/03/17 08:00 Creat Clearance w eGFR > 60 (>60) 06/03/17 08:00 Random Glucose 98 mg/dL (74-106) 06/03/17 08:00 Calcium 7.8 mg/dL (8.5-10.1) L 06/03/17 08:00 Total Bilirubin 0.4 mg/dL (0.2-1.0) D 06/03/17 08:00 AST 32 U/L (15-37) D 06/03/17 08:00 ALT 21 U/L (12-78) 06/03/17 08:00 Alkaline Phosphatase 64 U/L (45-117) 06/03/17 08:00 Total Protein 6.0 g/dl (6.4-8.2) L 06/03/17 08:00 Albumin 2.8 g/dl (3.4-5.0) L D 06/03/17 08:00 Current Medications Generic Name Dose Route Start Last Admin Trade Name Freq PRN Reason Stop Dose Admin Acetaminophen 1,000 mg 06/02/17 20:54 Ofirmev Injection - IVPB Q6H PRN FEVER OR PAIN Atenolol 100 mg 06/03/17 18:30 06/04/17 10:00 Tenormin - PO 100 mg DAILY ALESSIO Administration Docusate Sodium 100 mg 06/02/17 20:14 Colace - PO BID PRN CONSTIPATION Enoxaparin Sodium 40 mg 06/03/17 10:00 06/04/17 10:03 Lovenox - SQ 40 mg DAILY ALESSIO Administration Sodium Chloride 1,000 mls @ 75 mls/hr 06/02/17 20:54 06/04/17 11:12 Normal Saline - IV 75 mls/hr ASDIR ALESSIO Administration Oxycodone HCl 5 mg 06/02/17 20:14 Roxicodone - PO Q4H PRN PAIN LEVEL 1-5 Oxycodone HCl 10 mg 06/02/17 20:16 06/04/17 16:51 Roxicodone - PO 10 mg Q4H PRN Administration PAIN LEVEL 6-10 Promethazine HCl 12.5 mg 06/02/17 20:05 Phenergan Injection - IVPUSH Q6H PRN NAUSEA-FOR RESCUE AFTER 15 MIN Home Medications Medication Instructions Recorded Atenolol [Tenormin -] 100 mg PO DAILY 06/01/17 HOSPITAL COURSE: Date of Admission:06/01/17 Date of Discharge: 06/04/17 Patient is a 57F w/ hx of charcot cornelio tooth disorder, HTN, and nephrolithiasis presented with left leg pain s/p mechanical fall, found to have a distal tibia and proximal fibula fracture. #POD #2 s/p left tibial nail , on pain medication for pain , OOB in rehab, strict NWB as per ortho #HTN continue home atenolol 100mg po qd after surgery #Normocytic Anemia DVT Px: Lovenox 40mg daily x 1 month post op in SNF. As per ortho: Dr. Chavez will need for 1 mo post op, on LMWH in SNF and (can go home on ASA BID) to follow up in 7-10 days for wound check discussed with regarding her discharge to SNF. Minutes to complete discharge: 45 Discharge Summary Reason For Visit: SPIRAL FRACTURE OF SHAFT TIBIA Current Active Problems Spiral fracture of shaft of tibia (Acute) - Instructions Diet, Activity, Other Instructions: Dr. Chavez Discharge Instructions Dear GERSON SERRANO, Post Operative Instructions Physical activity Non weight bearing on left lower extremity with use or rolling platform walker or kneeling walker. You may resume driving the car when you feel safe and comfortable behind the wheel. Do not operate a vehicle while taking narcotic pain medication. Wound care Keep your incisions clean and dry until sutures removed by your surgeon in the office. Do not use lotions or ointments over incisions Diet There are no dietary restrictions. Eat healthy, high-fiber foods. Drink 6 to 8 glasses of liquid each day. This will assist in keeping your bowels are regular. Pain management You may take Tylenol or acetaminophen. Any pain prescription medication ordered should be taken as prescribed for moderate to severe pain. Take OTC Aspirin 325mg twice daily (every 12 hours) for 4 weeks post op to prevent blood clots Call Dr. Chavez for any of the following: Severe pain not relieved by medication Fever of 101 or higher Excessive bleeding or drainage on dressing Call Dr Chavez' office for follow up appointment. As per ortho: Dr. Chavez will need for 1 month post operatively on LMWH in SNF and (can go home on ASA BID) upon discharge from SNF to follow up in 7-10 days for wound check in office, please make an appointment. Referrals: Butch Chavez MD [Staff Physician] - Disposition: [facility] - Home Medications Comprehensive Discharge Medication List: Ambulatory Orders Atenolol [Tenormin -] 100 mg PO DAILY 06/01/17 This patient is new to me today: No Emergency Visit: Yes ED Registration Date: 06/01/17 Care time: The patient presented to the Emergency Department on the above date and was hospitalized for further evaluation of their emergent condition. Critical Care patient: No - Discharge Referral Referred to [facility] No
[2017-06-04] MEDS ORDERED: DOCUSATE SODIUM 100 MG CAPSULE (FP) PO PRN (18:35)
[2017-06-05] MEDS ORDERED: FERROUS SO4 325 MG TABLET (FP) PO SCH ×2 (08:00→10:00)
--- NOTE | 2017-07-04 09:22 | OP ---
DATE OF OPERATION: PREOPERATIVE DIAGNOSIS: Left distal tibia and proximal fibular fracture. POSTOPERATIVE DIAGNOSIS: Left distal tibia and proximal fibular fracture. PROCEDURE: Left tibial intramedullary nail. SURGEON: Butch Zapata MD MACROECONOMICS PROFESSOR: TODD Mack, whose skillful assistance was necessary for the safe and timely performance of this procedure. Ms. Rea was able to provide limb positioning, fracture reduction assistance, retraction, as well as assisting in the insertion of orthopedic fixation hardware. ESTIMATED BLOOD LOSS: 100 mL. POSTOPERATIVE CONDITION: Stable. COMPLICATIONS: None. IMPLANTS: Baldwin T2 tibial nail, two proximal and 3 distal 5.0 locking screws. INDICATIONS: This is a pleasant woman who suffered a trip and fall at home. She was unable to ambulate afterwards. She was brought to the emergency department where she was found to have a displaced tibia and fibular fracture. Treatment options including nonoperative versus operative measures were discussed in detail. We discussed the option of closed reduction and casting with prolonged treatment in a case and the likelihood of malunion. We discussed operative treatments which would allow for early mobilization and better alignment. It would not all for early weightbearing. Operative risks were reviewed including bleeding, infection, neurovascular injury, any further surgery, postoperative pain and stiffness, nonunion, malunion, hardware failure or cutout. We reviewed the postoperative protocol including nonweightbearing, albeit with allowed range of motion of the knee and ankle. We reviewed medical risks such as heart attack, stroke, DVT, PE, and . We discussed the use of perioperative DVT and antibiotic prophylaxis. I addressed all the patient's questions. She voiced understanding and elected to proceed. DESCRIPTION OF PROCEDURE: The patient was brought to the operating room where anesthesia was administered. The left lower extremity was then prepped and draped in the usual sterile fashion. A preoperative dose of antibiotics was given, and the usual timeout procedure was performed. It should be noted that there was a fracture blister present about the fracture site on the preoperative exam. At this point, an incision was planned out over the patellar tendon. This was carried down through the skin and subcutaneous tissue. Blunt spreading was used and carried down to the level of the patellar tendon. The fascia was then bluntly dissected in order to provide exposure to the anterior aspect of the tibial plateau. A guidewire was then inserted under fluoroscopic guidance in the medial parapatellar region just to the medial border of the lateral tibial spine on the EP fluoroscopy and just posterior to the roll-off on the lateral fluoroscopy. The guidewire was then mallet into the proximal tibia. The guidewire was then overreamed to create a small socket on the tibia. The awl was then inserted into the socket and then directed more distally. The long guidewire was now inserted through the awl and into the shaft of the tibia. The awl was then withdrawn. Attention was now turned distally in the limb. The fracture was initially attempted to be close reduced. However, this was not successful. Using fluoroscopy, a fracture clamp was applied. This was done by making 2 small stab holes both medially and laterally about the fracture site. Blunt spreading was then used to carry down the level of the bone. A point reduction clamp was used to reduce the fracture. Fluoroscopy was used to confirm fracture reduction. The guidewire was then advanced down to the center of the tibial plafond as visualized on both AP and lateral fluoroscopy. The guidewire was measured, and the 300-mm nail was chosen. The reamers were then used starting with a size 9 and progressing up to a size 10.5 when excellent shatter was achieved. The size 9 nail was then chosen. The nail was now advanced down the canal. Upon passing the fracture site, the nail displaced the fracture. The nail was then backed out to the proximal portion of the tibia. The thought now was to use a locking screw to correct the deformity. A small incision was made anteriorly in the spot determined by fluoroscopic guidance. Blunt spreading was carried down to the bone. A drill was then placed, and then a blocking screw was inserted. Unfortunately, the locking screw was seen to be taking up too much space within the canal and had to be removed. A second attempt now was made at reduction, and the fracture reduction clamp was not used to maintain the anatomic reduction. The nail was then passed taking care to go quite slow. Advancing the nail this time resulted in a satisfactory reduction. Attention was now turned proximally. The jig was used for 2 proximal locking screws. Trocar was inserted through the jig. A small incision was made, and blunt spreading was used to carry the trocar down to the level of the cortex. Both screws were drilled, measured, verified fluoroscopically, and then inserted. This replacement was then verified fluoroscopically. Again, both screws were satisfactory. Attention was then turned distally. Initially, Perfect [place] technique was used in the medial to lateral screws. Screw sites were identified. Small incisions were made again followed by spreading. Both screws were drilled, measured, and then inserted. Screw placement was verified fluoroscopically. Given the distal extent of the fracture, it was felt that the third screw would add to the fixation of the fracture. Perfect [place] technique again was used to establish the location of the anterior to posterior hole. Again, the same technique of incision followed by spreading was used, and then the screw was drilled, measured, and inserted. At this point, the entire construct was examined both visually and fluoroscopically. Both fracture reduction and hardware placement were satisfactory. The wounds were copiously irrigated. The deep tissues were repaired using 0 Vicryl. The subcutaneous tissue was approximated using 2-0 Vicryl. The skin was closed using 3-0 nylon. Compartments were examined demonstrating soft compartments. The patient was then placed into sterile compressive dressings. She was extubated and transferred to recovery room in stable condition. BUTCH ZAPATA M.D. [id number]
== END 2017-06-04 19:00 | DRG 494 ==
LOC: JER 17:11 → JERBED 20:26 → J8W 06-02 00:08
PROVIDERS: ADMIT Internal Medicine; ATTEND Internal Medicine
PROC: 0QSH06Z Reposition Left Tibia with Intramedullary Internal Fixation Device, Open Approach (ICD-10-PCS; principal; 2017-06-02 15:00)
DX: S82.242A Displaced spiral fracture of shaft of left tibia, initial encounter for closed fracture (principal); S89.202A Unspecified physeal fracture of upper end of left fibula, initial encounter for closed fracture; I10 Essential (primary) hypertension; G60.0 Hereditary motor and sensory neuropathy; W18.39XA Other fall on same level, initial encounter; Y93.89 Activity, other specified; Y92.89 Other specified places as the place of occurrence of the external cause; G62.89 Other specified polyneuropathies; D64.9 Anemia, unspecified
CPT/HCPCS: 36415; 71010-TC; 73590-TC-LT; 73610-TC-LT; 73630-TC-LT; 76000-TC; 80048; 80053; 82607; 82728; 82746; 83540; 83550; 85025; 85610; 86850; 86900; 86901; 93005; 93010; 94010; 94760; 97116-GP; 97162-GP; 99285-25

== ENCOUNTER 2023-11-08 12:38 | Inpatient (IN) | payer OTHER ==
[2023-11-08] MEDS ORDERED: ACETAMINOPHEN INJECTION 100 ML IVPB ONE (13:16)
[2023-11-08] MEDS: SODIUM CHLORIDE 1,000 ML IV STA (13:21)
[2023-11-08] MEDS: ACETAMINOPHEN 1000 MG/100 ML BAG IVPB ONE ×2 (13:22→20:29)
[2023-11-08 13:30] LABS: HEMATOCRIT 28.9 % (32.4-45.2); HEMOGLOBIN 9.9 GM/dL (10.7-15.3); MCH 27.9 pg (25.7-33.7); MCHC 34.2 g/dl (32.0-36.0); MEAN CELL VOLUME 81.7 fl (80-96); MEAN PLT VOLUME 7.4 fl (7.5-11.1); PLATELET COUNT 254 10^3/uL (134-434); RBC 3.54 M/mm3 (3.60-5.2)
[2023-11-08 13:32] VITALS: BMI 28.3
[2023-11-08 13:32] LABS: VENOUS O2 SATURATION 45.6 % (70-80); VENOUS PCO2 32.8 mmHg (38-52); VENOUS PH 7.446 (7.310-7.410)
[2023-11-08 14:01] LABS: CHLORIDE 98 mmol/L (98-107)
[2023-11-08 14:06] LABS: ALBUMIN 2.2 g/dl (3.4-5.0); ANISOCYTOSIS 0; BLOOD UREA NITROGEN 37.5 mg/dL (7-18); CALCIUM 8.4 mg/dL (8.5-10.1); CO2 22 mmol/L (21-32); GLUCOSE,RANDOM 127 mg/dL (74-106); HELMET CELLS 0; HOWELL-JOLLY BODIES 0; MACROCYTOSIS 0; OVALOCYTE 0; ROULEAU 0; SICKELED CELLS 0; TARGET CELLS 0; TEAR DROP CELLS 0; TOXIC GRANULATION 0
[2023-11-08 14:09] LABS: CREATININE 2.2 mg/dL (0.55-1.3); SGOT/AST 95 U/L (15-37); SGPT/ALT 39 U/L (13-61)
[2023-11-08 14:11] LABS: BILIRUBIN,TOTAL 0.8 mg/dL (0.2-1); TOT PROT 6.8 g/dl (6.4-8.2)
[2023-11-08 14:12] LABS: ALK PHOS 203 U/L (45-117); ANION GAP 6 mmol/L (4-13); POTASSIUM 6.6 mmol/L (3.5-5.1); SODIUM 126 mmol/L (136-145)
[2023-11-08 14:13] LABS: LACTIC ACID 2.1 mmol/L (0.4-2.0)
[2023-11-08] MEDS: PIPERACILLIN/TAZOB 4.5 GM 4.5 GM in DEXTROSE 5%-WATER 100 ML IVPB ONE (14:22)
[2023-11-08] MEDS ORDERED: PIPERACILLIN/TAZOB 4.5 GM 4.5 GM/100 ML BAG IVPB ONE (14:22)
[2023-11-08 14:28] LABS: EPI CELLS 6 /uL (0-25.1); HYALINE CASTS 5 /uL (0-3.1); URINE APPEARANCE TURBID; URINE BACTERIA >9,000 /uL (0-1359); URINE BILIRUBIN NEGATIVE (NEGATIVE); URINE COLOR ORANGE; URINE GLUCOSE (UA) NEGATIVE (NEGATIVE); URINE KETONE NEGATIVE (NEGATIVE); URINE LEUK ESTERASE 3+ (NEGATIVE); URINE NITRITE POSITIVE (NEGATIVE); URINE PROTEIN 2+ (NEGATIVE); URINE WBC 2459 /uL (0-25.8)
[2023-11-08 14:52] LABS: YEAST NEGATIVE (NEGATIVE)
[2023-11-08 14:53] LABS: POTASSIUM 4.2 mmol/L (3.5-5.1)
[2023-11-08 14:55] LABS: BLOOD UREA NITROGEN 37.1 mg/dL (7-18)
[2023-11-08 14:57] LABS: CREATININE 2.1 mg/dL (0.55-1.3)
[2023-11-08] MEDS: SODIUM CHLORIDE 0.9% 500 ML INFUS.BAG IV ONE ×2 (15:54→16:36)
[2023-11-08 18:18] LABS: INR 1.38 (0.83-1.09); PROTHROMBIN TIME (PATIENT) 15.4 SEC (9.7-13.0)
[2023-11-08 18:20] LABS: ACTIVATED PTT 30.2 SECONDS (25.2-36.5)
[2023-11-08] MEDS: SODIUM CHLORIDE 1,000 ML IV SCH ×2 (18:49→21:30)
[2023-11-08] MEDS ORDERED: ONDANSETRON 4 MG/2 ML VIAL IVPUSH PRN ×2 (19:23→21:03)
[2023-11-08] MEDS ORDERED: LACTATED RINGERS SOLUTION 1,000 ML IV SCH (19:30)
[2023-11-08] MEDS ORDERED: FENTANYL CITRATE/PF 50 MCG/ML VIAL ONE (19:41)
[2023-11-08] MEDS ORDERED: SUCCINYLCHOLINE CHLORIDE 200 MG/10 ML SYRINGE ONE (19:41)
[2023-11-08] MEDS ORDERED: ETOMIDATE 20 MG/10 ML VIAL IVPUSH ONE (19:41)
[2023-11-08] MEDS: IOHEXOL 300 MG/ML INFUS..BTL IV ONE (20:06)
[2023-11-08] MEDS ORDERED: ONDANSETRON 4 MG/2 ML VIAL ONE (20:17)
[2023-11-08] MEDS ORDERED: LIDOCAINE HCL/PF 2% SDV 5ML VIAL ONE (20:18)
[2023-11-08] MEDS ORDERED: ATORVASTATIN CA 10 MG TABLET (FP) PO SCH (22:00)
[2023-11-08] MEDS: ATORVASTATIN CA 10 MG TABLET (FP) PO SCH (23:03)
[2023-11-08] MEDS: SODIUM CHLORIDE 0.9% 1000 ML INFUS.BAG IV SCH (23:08)
[2023-11-09 01:42] LABS: CALCIUM 7.3 mg/dL (8.5-10.1); POTASSIUM 4.4 mmol/L (3.5-5.1)
[2023-11-09 01:44] LABS: BLOOD UREA NITROGEN 36.2 mg/dL (7-18)
[2023-11-09 01:47] LABS: CREATININE 1.7 mg/dL (0.55-1.3)
[2023-11-09] MEDS ORDERED: PIPERACILLIN/TAZOB 3.375 GM 3.375 GM in DEXTROSE 5%-WATER - 50 ML IVPB SCH ×4 (02:00→18:00)
[2023-11-09] MEDS: PIPERACILLIN/TAZOB 3.375 GM 3.375 GM in DEXTROSE 5%-WATER - 50 ML IVPB SCH (02:28)
[2023-11-09 09:07] LABS: HEMATOCRIT 22.7 % (32.4-45.2); HEMOGLOBIN 7.6 GM/dL (10.7-15.3); MCH 27.5 pg (25.7-33.7); MCHC 33.4 g/dl (32.0-36.0); MEAN CELL VOLUME 82.2 fl (80-96); MEAN PLT VOLUME 7.2 fl (7.5-11.1); PLATELET COUNT 210 10^3/uL (134-434); RBC 2.76 M/mm3 (3.60-5.2); RDW 15.9 % (11.6-15.6); WHITE BLOOD COUNT 22.1 K/mm3 (4.0-10.0)
[2023-11-09 09:24] LABS: CHLORIDE 115 mmol/L (98-107); POTASSIUM 3.7 mmol/L (3.5-5.1); SODIUM 141 mmol/L (136-145)
[2023-11-09 09:27] LABS: ANION GAP 6 mmol/L (4-13); CO2 20 mmol/L (21-32); GLUCOSE,RANDOM 68 mg/dL (74-106)
[2023-11-09 09:30] LABS: CREATININE 1.4 mg/dL (0.55-1.3); SGOT/AST 30 U/L (15-37); SGPT/ALT 25 U/L (13-61)
[2023-11-09 09:32] LABS: BILIRUBIN,TOTAL 0.5 mg/dL (0.2-1); TOT PROT 4.9 g/dl (6.4-8.2)
[2023-11-09 09:39] LABS: ALBUMIN 1.7 g/dl (3.4-5.0); ALK PHOS 100 U/L (45-117); CALCIUM 6.9 mg/dL (8.5-10.1)
[2023-11-09] MEDS: DEXTROSE 50%-WATER 25 GM/50 ML DISP.SYRIN IVPUSH ONE (10:22)
[2023-11-09 10:26] LABS: ANISOCYTOSIS 0; MACROCYTOSIS 0
[2023-11-09 13:05] LABS: HEMATOCRIT 23.8 % (32.4-45.2); MCH 27.5 pg (25.7-33.7); MCHC 33.6 g/dl (32.0-36.0); MEAN CELL VOLUME 81.9 fl (80-96); MEAN PLT VOLUME 7.4 fl (7.5-11.1); PLATELET COUNT 222 10^3/uL (134-434); RBC 2.91 M/mm3 (3.60-5.2); RDW 15.9 % (11.6-15.6); WHITE BLOOD COUNT 24.3 K/mm3 (4.0-10.0)
[2023-11-09 14:11] LABS: ANISOCYTOSIS 0; MACROCYTOSIS 0
[2023-11-09] MEDS: ACETAMINOPHEN 1000 MG/100 ML BAG IVPB PRN (14:32)
[2023-11-09] MEDS: MEROPENEM 1 GM in DEXTROSE 5%-WATER 100 ML IVPB SCH (14:32)
[2023-11-09] MEDS: LACTATED RINGERS SOLUTION 1,000 ML/1,000 ML INFUS.BAG IV SCH (14:34)
[2023-11-10 09:08] LABS: POTASSIUM 3.7 mmol/L (3.5-5.1)
[2023-11-10 09:09] LABS: BASO % 0.3 % (0-2.0); EOS % 0.3 % (0-4.5); HEMATOCRIT 23.7 % (32.4-45.2); LYMPH % 4.9 % (8-40); MCH 27.8 pg (25.7-33.7); MCHC 33.8 g/dl (32.0-36.0); MEAN CELL VOLUME 82.3 fl (80-96); MEAN PLT VOLUME 7.7 fl (7.5-11.1); MONO % 4.4 % (3.8-10.2); NEUT % 90.1 % (42.8-82.8); PLATELET COUNT 254 10^3/uL (134-434); RBC 2.88 M/mm3 (3.60-5.2); RDW 15.7 % (11.6-15.6); WHITE BLOOD COUNT 20.6 K/mm3 (4.0-10.0)
[2023-11-10 09:09] LABS: CALCIUM 7.8 mg/dL (8.5-10.1)
[2023-11-10 09:10] LABS: ALBUMIN 1.7 g/dl (3.4-5.0); MAGNESIUM 1.6 mg/dL (1.8-2.4)
[2023-11-10 09:14] LABS: BILIRUBIN,TOTAL 0.5 mg/dL (0.2-1); TOT PROT 5.2 g/dl (6.4-8.2)
[2023-11-10 09:51] LABS: ANISOCYTOSIS 0; MACROCYTOSIS 0
[2023-11-10] MEDS: SODIUM CHLORIDE 1,000 ML IV SCH (10:15)
[2023-11-10] MEDS: ATENOLOL 25 MG TABLET (FP) PO SCH (20:45)
[2023-11-11] MEDS: CEFAZOLIN SODIUM 2 GM in DEXTROSE 5%-WATER 100 ML IVPB SCH (01:26)
[2023-11-11 06:03] LABS: BASO % 0.4 % (0-2.0); EOS % 0.7 % (0-4.5); HEMATOCRIT 23.2 % (32.4-45.2); HEMOGLOBIN 7.8 GM/dL (10.7-15.3); LYMPH % 9.5 % (8-40); MCH 27.4 pg (25.7-33.7); MCHC 33.4 g/dl (32.0-36.0); MEAN PLT VOLUME 7.6 fl (7.5-11.1); MONO % 6.3 % (3.8-10.2); NEUT % 83.1 % (42.8-82.8); PLATELET COUNT 279 10^3/uL (134-434); RBC 2.83 M/mm3 (3.60-5.2); RDW 15.8 % (11.6-15.6); WHITE BLOOD COUNT 13.9 K/mm3 (4.0-10.0)
[2023-11-11 06:21] LABS: POTASSIUM 3.5 mmol/L (3.5-5.1)
[2023-11-11 06:26] LABS: CALCIUM 7.3 mg/dL (8.5-10.1)
[2023-11-11 06:28] LABS: ALBUMIN 1.6 g/dl (3.4-5.0); BLOOD UREA NITROGEN 16.7 mg/dL (7-18)
[2023-11-11 06:31] LABS: CREATININE 0.8 mg/dL (0.55-1.3)
[2023-11-11 06:32] LABS: BILIRUBIN,TOTAL 0.5 mg/dL (0.2-1); TOT PROT 5.2 g/dl (6.4-8.2)
[2023-11-11 07:53] LABS: MAGNESIUM 1.3 mg/dL (1.8-2.4)
[2023-11-11] MEDS: MAGNESIUM SULF 50% (8.12 MEQ/2 ML-1 GM VIAL) IVPB ONE (08:46)
[2023-11-11] MEDS: MAGNESIUM 2GM/50ML STERILE WATER IVPB IVPB SCH (12:53)
[2023-11-11] MEDS: SODIUM CHLORIDE 0.45% 1,000 ML IV SCH (14:27)
[2023-11-11] MEDS: ATORVASTATIN CA 10 MG TABLET (FP) PO SCH (21:25)
[2023-11-11] MEDS: ACETAMINOPHEN 325 MG TABLET (FP) PO PRN (21:45)
[2023-11-12 08:03] LABS: BASO % 0.4 % (0-2.0); EOS % 0.9 % (0-4.5); HEMATOCRIT 22.1 % (32.4-45.2); HEMOGLOBIN 7.6 GM/dL (10.7-15.3); LYMPH % 9.9 % (8-40); MCH 27.9 pg (25.7-33.7); MCHC 34.3 g/dl (32.0-36.0); MEAN CELL VOLUME 81.3 fl (80-96); MEAN PLT VOLUME 7.5 fl (7.5-11.1); MONO % 6.8 % (3.8-10.2); PLATELET COUNT 324 10^3/uL (134-434); RBC 2.72 M/mm3 (3.60-5.2); RDW 15.6 % (11.6-15.6); WHITE BLOOD COUNT 12.8 K/mm3 (4.0-10.0)
[2023-11-12 08:26] LABS: POTASSIUM 3.3 mmol/L (3.5-5.1)
[2023-11-12 08:33] LABS: BLOOD UREA NITROGEN 13.7 mg/dL (7-18); CALCIUM 7.5 mg/dL (8.5-10.1); MAGNESIUM 1.7 mg/dL (1.8-2.4)
[2023-11-12 08:35] LABS: ALBUMIN 1.7 g/dl (3.4-5.0)
[2023-11-12 08:36] LABS: PHOSPHOROUS 2.6 mg/dL (2.5-4.9)
[2023-11-12 08:37] LABS: CREATININE 0.6 mg/dL (0.55-1.3)
[2023-11-12 08:38] LABS: BILIRUBIN,TOTAL 0.5 mg/dL (0.2-1); TOT PROT 5.2 g/dl (6.4-8.2)
[2023-11-12] MEDS ORDERED: MAGNESIUM HYDROX 2400MG/30ML ORAL SUSPENSION 30 ML CUP PO PRN (13:08)
[2023-11-12] MEDS: MAGNESIUM HYDROX 2400MG/30ML ORAL SUSPENSION 30 ML CUP PO ONE (14:14)
[2023-11-12] MEDS: POTASSIUM CHLORIDE ORAL LIQUID 20 MEQ/15 ML PO ONE (14:44)
[2023-11-13 08:15] LABS: BASO % 0.5 % (0-2.0); EOS % 1.7 % (0-4.5); HEMATOCRIT 22.6 % (32.4-45.2); HEMOGLOBIN 7.9 GM/dL (10.7-15.3); LYMPH % 15.3 % (8-40); MCH 28.3 pg (25.7-33.7); MCHC 34.8 g/dl (32.0-36.0); MEAN CELL VOLUME 81.1 fl (80-96); MEAN PLT VOLUME 7.2 fl (7.5-11.1); MONO % 7.1 % (3.8-10.2); NEUT % 75.4 % (42.8-82.8); PLATELET COUNT 366 10^3/uL (134-434); RBC 2.78 M/mm3 (3.60-5.2); RDW 15.4 % (11.6-15.6); WHITE BLOOD COUNT 9.4 K/mm3 (4.0-10.0)
[2023-11-13 08:45] LABS: POTASSIUM 3.7 mmol/L (3.5-5.1)
[2023-11-13 08:51] LABS: ALBUMIN 1.8 g/dl (3.4-5.0); BLOOD UREA NITROGEN 11.9 mg/dL (7-18)
[2023-11-13 08:52] LABS: CALCIUM 7.6 mg/dL (8.5-10.1)
[2023-11-13 08:53] LABS: BILIRUBIN,TOTAL 0.5 mg/dL (0.2-1); TOT PROT 5.6 g/dl (6.4-8.2)
[2023-11-13 08:55] LABS: CREATININE 0.6 mg/dL (0.55-1.3)
[2023-11-13] MEDS ORDERED: MAGNESIUM HYDROX 2400MG/30ML ORAL SUSPENSION 30 ML CUP PO PRN (13:08)
[2023-11-13 15:13] VITALS: RESP 18
[2023-11-14 08:06] LABS: BASO % 0.6 % (0-2.0); EOS % 1.2 % (0-4.5); HEMATOCRIT 23.3 % (32.4-45.2); HEMOGLOBIN 7.9 GM/dL (10.7-15.3); LYMPH % 16.6 % (8-40); MCH 27.6 pg (25.7-33.7); MCHC 33.9 g/dl (32.0-36.0); MEAN CELL VOLUME 81.5 fl (80-96); MEAN PLT VOLUME 7.1 fl (7.5-11.1); MONO % 6.8 % (3.8-10.2); NEUT % 74.8 % (42.8-82.8); PLATELET COUNT 424 10^3/uL (134-434); RBC 2.86 M/mm3 (3.60-5.2); WHITE BLOOD COUNT 9.4 K/mm3 (4.0-10.0)
[2023-11-14 08:23] LABS: POTASSIUM 3.6 mmol/L (3.5-5.1)
[2023-11-14 08:31] LABS: CALCIUM 7.4 mg/dL (8.5-10.1)
[2023-11-14 08:32] LABS: BLOOD UREA NITROGEN 10.5 mg/dL (7-18)
[2023-11-14 08:34] LABS: CREATININE 0.5 mg/dL (0.55-1.3)
[2023-11-14 08:36] LABS: BILIRUBIN,TOTAL 0.5 mg/dL (0.2-1)
[2023-11-14 22:20] VITALS: BP 134/73; PULSE 92; TEMP 98.8
== END 2023-11-15 01:15 | DRG 854 ==
LOC: JER 12:38 → JERBED 18:03 → J4S 22:20 → J8W 11-11 16:20
PROVIDERS: ADMIT Internal Medicine; ATTEND Nurse Practitioner Acute Care
PROC: BT1DZZZ Fluoroscopy of Right Kidney, Ureter and Bladder (ICD-10-PCS; 2023-11-08)
PROC: 0T768DZ Dilation of Right Ureter with Intraluminal Device, Via Natural or Artificial Opening Endoscopic (ICD-10-PCS; principal; 2023-11-08 19:05)
DX: A41.89 Other specified sepsis (principal); E87.1 Hypo-osmolality and hyponatremia; N17.9 Acute kidney failure, unspecified; N13.6 Pyonephrosis; E87.20 Acidosis, unspecified; I10 Essential (primary) hypertension; E78.5 Hyperlipidemia, unspecified; G60.0 Hereditary motor and sensory neuropathy; D64.9 Anemia, unspecified; E87.6 Hypokalemia; E83.42 Hypomagnesemia; B96.4 Proteus (mirabilis) (morganii) as the cause of diseases classified elsewhere
CPT/HCPCS: 0241U-QW; 36415; 71045-TC-FY; 74176-TC; 76000-TC-FY; 76775-TC; 80048; 80053; 81003; 82803; 82962; 83605; 83735; 84100; 84484; 85025; 85610; 85730; 87040; 87086; 87186; 87635; 93005; 93010; 94760; 97116-GP; 99285-25; C2617; J0131

== ENCOUNTER 2024-01-16 04:11 | Day surgery (SDC) | payer OTHER ==
[2024-01-13 12:26] VITALS: BMI 28.3
[2024-01-16] MEDS ORDERED: MIDAZOLAM HCL 2 MG/2 ML SINGLE DOSE VIAL ONE (10:14)
[2024-01-16] MEDS ORDERED: ONDANSETRON 4 MG/2 ML VIAL ONE (10:14)
[2024-01-16 11:21] VITALS: RESP 18
[2024-01-16 12:47] VITALS: BP 135/93; PULSE 68; TEMP 97.3
== END 2024-01-16 12:25 ==
LOC: JASU-SURG 04:11
PROVIDERS: ATTEND Urology
PROC: 0TF3XZZ Fragmentation in Right Kidney Pelvis, External Approach (ICD-10-PCS; principal; 2024-01-16 11:00)
DX: N20.0 Calculus of kidney (principal)